=== PATIENT | male | born 1965 | race Caucasian/White ===

== ENCOUNTER 2018-05-24 19:22 | Emergency (ER) | payer SELFPAY ==
[~2018-05-24] VITALS: Ht 170.2 cm; Wt 81.6 kg
[2018-05-24 19:32] VITALS: Ht 170.2 cm; Wt 81.6 kg
[2018-05-24 21:10] VITALS: BP 134/86
== END 2018-05-24 21:10 | disposition home or self-care (01) ==
LOC: ED 19:22
DX: S39.012A Strain of muscle, fascia and tendon of lower back, initial encounter (principal); V48.6XXA Car passenger injured in noncollision transport accident in traffic accident, initial encounter; W22.12XA Striking against or struck by front passenger side automobile airbag, initial encounter; Y93.89 Activity, other specified; Y92.413 State road as the place of occurrence of the external cause; Y99.8 Other external cause status